=== PATIENT | female | born 1970 | race Two or more races ===

== ENCOUNTER 2019-06-02 02:13 | Inpatient (IN) | payer OTHER ==
[~2019-06-02] VITALS: Ht 158.8 cm; Wt 91.3 kg
[2019-06-02] VITALS (14 sets, daily range): BP systolic 144–195; BP diastolic 78–124
--- NOTE | 2019-06-02 02:26 | NUR ---
PG CODE CARDIAC @224 PG CARDS @[phone]
[2019-06-02] MEDS: NITROGLYCERIN 0.4 MG BOTTLE (25 TABS) SL PRN ×2 (02:30→02:40)
[2019-06-02] MEDS ORDERED: ASPIRIN 325 MG TABLET PO STA (02:31)
[2019-06-02] MEDS ORDERED: ONDANSETRON 2MG/ML, 2ML ONE (02:40)
[2019-06-02 02:46] LABS: BASOPHILS # (AUTO) 0.02 x10^3/uL (0-0.1); BASOPHILS % (AUTO) 0 % (0-1); EOSINOPHILS # (AUTO) 0.16 x10^3/uL (0-0.4); EOSINOPHILS % (AUTO) 2 % (1-7); LYMPHOCYTES # (AUTO) 2.09 x10^3/uL (1-3.4); LYMPHOCYTES % (AUTO) 22 % (22-44); MD NO; MEAN CORPUSCULAR HEMOGLOBIN 28.5 pg (27.0-34.8); MEAN CORPUSCULAR HGB CONC 32.7 g/dL (32.4-35.8); MEAN CORPUSCULAR VOLUME 86.9 fL (80-100); MEAN PLATELET VOLUME 7.1 fL (7.4-10.4); MONOCYTES # (AUTO) 0.47 x10^3/uL (0.2-0.8); MONOCYTES % (AUTO) 5 % (2-9); NEUTROPHILS # (AUTO) 6.93 x10^3/uL (1.8-6.8); NEUTROPHILS % (AUTO) 72 % (42-75); PLATELET COUNT 381 x10^3/uL (130-400); RED BLOOD COUNT 5.67 x10^6/uL (3.82-5.3); RED CELL DISTRIBUTION WIDTH 13.6 % (9.6-15.2)
[2019-06-02] MEDS ORDERED: hydrALAzine 20 MG/ML, 1ML ONE (02:48)
--- NOTE | 2019-06-02 02:48 | NUR ---
Code cardiac called at 0225. Patient c/o nausea and dizziness. Denies CP, denies LEMUS.
--- NOTE | 2019-06-02 02:51 | NUR ---
Two IVs established. SPO2 placed on right thumb. BP cuff placed on left arm. Fluids TKO. All clothes and belongings off patient and in patient belonging bag. Technology Consultant at bedside. Awaiting union laborer team.
--- NOTE | 2019-06-02 02:54 | NUR ---
Consent signed and placed on chart.
[2019-06-02 02:57] LABS: INTERNATIONAL NORMALIZED RATIO 0.99 (0.93-1.1); PROTHROMBIN TIME 10.4 Seconds (9.6-11.5)
[2019-06-02] MEDS ORDERED: FENTANYL PF 250 MCG/5ML ONE (03:00)
[2019-06-02] MEDS ORDERED: VERAPAMIL 2.5 MG/ML, 2ML ONE (03:00)
[2019-06-02] MEDS ORDERED: ONDANSETRON 2MG/ML, 2ML IVPush ONE (03:00)
[2019-06-02] MEDS ORDERED: MIDAZOLAM 1 MG/ML, 5ML ONE (03:00)
[2019-06-02] MEDS ORDERED: BIVALIRUDIN 250 MG ONE (03:00)
[2019-06-02] MEDS ORDERED: HEPARIN 1,000 UNITS/ML, 10ML ONE (03:00)
[2019-06-02] MEDS ORDERED: LIDOCAINE 1%, 20ML ONE (03:00)
[2019-06-02] MEDS ORDERED: hydrALAzine 20 MG/ML, 1ML IV ONE (03:00)
[2019-06-02 03:03] LABS: TROPONIN I < 0.015 ng/mL (0.000-0.045)
[2019-06-02] MEDS ORDERED: ASPIRIN 81 MG TABLET EC ONE (03:14)
[2019-06-02] MEDS ORDERED: FELO10TA PO (04:11)
[2019-06-02] MEDS: ONDANSETRON 2MG/ML, 2ML IVPush PRN ×2 (05:25→09:37)
[2019-06-02] MEDS ORDERED: POLYETHYLENE GLYCOL 17 GM PACKET PO PRN (05:30)
[2019-06-02] MEDS ORDERED: ONDANSETRON ODT 4 MG PO PRN (05:30)
[2019-06-02] MEDS ORDERED: BISACODYL 10 MG SUPP PR PRN (05:30)
[2019-06-02] MEDS ORDERED: ONDANSETRON 2MG/ML, 2ML IVPush PRN (05:30)
[2019-06-02] MEDS ORDERED: DOCUSATE 100 MG CAPSULE PO PRN (05:30)
[2019-06-02] MEDS ORDERED: OXYcodone IR 5MG TABLET PO PRN (05:30)
[2019-06-02] MEDS ORDERED: hydrALAzine 20 MG/ML, 1ML IVPush PRN (05:30)
[2019-06-02] MEDS ORDERED: ASPIRIN 81 MG TABLET EC PO SCH (06:00)
[2019-06-02] MEDS ORDERED: POTASSIUM CHLORIDE 40 MEQ in SODIUM CHLORIDE 0.9% 500 ML IV ONE (06:00)
[2019-06-02] MEDS: ASPIRIN 81 MG TABLET EC PO SCH (06:32)
[2019-06-02] MEDS: IRBESARTAN 150 MG TABLET PO SCH (06:32)
[2019-06-02 06:55] LABS: HEMOGLOBIN A1C 5.7 % (4.2-6.3)
[2019-06-02 07:12] LABS: FREE T4 (FREE THYROXINE) 1.06 ng/dL (0.76-1.46); TROPONIN I < 0.015 ng/mL (0.000-0.045)
[2019-06-02] MEDS: PROMETHAZINE 25 MG/ML, 1ML IM PRN ×2 (08:15→11:19)
[2019-06-02] MEDS ORDERED: hydrALAzine 20 MG/ML, 1ML IV PRN (09:00)
[2019-06-02] MEDS: AMLODIPINE 10 MG TAB PO SCH (09:33)
[2019-06-02] MEDS: SPIRONOLACTONE 25 MG TABLET PO SCH (09:33)
[2019-06-02 09:44] LABS: TROPONIN I < 0.015 ng/mL (0.000-0.045)
[2019-06-02] MEDS ORDERED: LABETALOL 5MG/ML, 20ML IVPush PRN (13:00)
[2019-06-02] MEDS: LABETALOL 5 MG/ML SYR. (IV ONLY) IVPush PRN ×2 (13:20→17:13)
[2019-06-02] MEDS: MECLIZINE 12.5 MG TABLET PO PRN (17:18)
[2019-06-03] VITALS (8 sets, daily range): BP systolic 139–183; BP diastolic 77–113
[2019-06-03 05:16] LABS: BASOPHILS # (AUTO) 0.04 x10^3/uL (0-0.1); BASOPHILS % (AUTO) 1 % (0-1); EOSINOPHILS # (AUTO) 0.02 x10^3/uL (0-0.4); EOSINOPHILS % (AUTO) 0 % (1-7); LYMPHOCYTES # (AUTO) 1.52 x10^3/uL (1-3.4); LYMPHOCYTES % (AUTO) 16 % (22-44); MD NO; MEAN CORPUSCULAR HEMOGLOBIN 28.6 pg (27.0-34.8); MEAN CORPUSCULAR HGB CONC 32.7 g/dL (32.4-35.8); MEAN CORPUSCULAR VOLUME 87.3 fL (80-100); MONOCYTES # (AUTO) 0.57 x10^3/uL (0.2-0.8); MONOCYTES % (AUTO) 6 % (2-9); NEUTROPHILS # (AUTO) 7.37 x10^3/uL (1.8-6.8); NEUTROPHILS % (AUTO) 77 % (42-75); PLATELET COUNT 363 x10^3/uL (130-400); RED BLOOD COUNT 5.33 x10^6/uL (3.82-5.3); RED CELL DISTRIBUTION WIDTH 14.4 % (9.6-15.2)
[2019-06-03 05:27] LABS: ALBUMIN 3.6 g/dL (3.4-5.0); ANION GAP 6 mmol/L (5-15); CALCIUM 9.2 mg/dL (8.5-10.1); CHLORIDE 109 mmol/L (98-107)
[2019-06-03 05:29] LABS: HEMOGLOBIN A1C 5.6 % (4.2-6.3)
[2019-06-03 05:40] LABS: ALANINE AMINOTRANSFERASE 40 U/L (12-78); ALKALINE PHOSPHATASE 103 U/L (45-117); BILIRUBIN,TOTAL 0.6 mg/dL (0.2-1.0); CHOLESTEROL, TOTAL 217 mg/dL (140-239); CREATININE 0.88 mg/dL (0.55-1.02); HDL CHOLESTEROL (DIRECT) 38 mg/dL (40-60); TOTAL PROTEIN 7.8 g/dL (6.4-8.2); TRIGLYCERIDES 144 mg/dL (50-200); VLDL CHOLESTEROL 29 mg/dL (0-25)
[2019-06-03 05:41] LABS: CHOL/HDL RATIO 5.7; HDL CHOL % 18 % (28-40); LDL CHOLESTEROL,CALCULATED 150 mg/dL (54-169); LDL/HDL RATIO 3.9 (0.5-3.0)
[2019-06-03] MEDS: ASPIRIN 81 MG TABLET EC PO SCH (05:55)
[2019-06-03] MEDS: LABETALOL 5 MG/ML SYR. (IV ONLY) IVPush PRN (06:17)
[2019-06-03] MEDS ORDERED: POTASSIUM CHLORIDE 40 MEQ in SODIUM CHLORIDE 0.9% 500 ML IV ONE (06:30)
[2019-06-03] MEDS: POTASSIUM CHLORIDE 20 MEQ TAB.ER.PRT PO SCH ×2 (09:12→17:52)
[2019-06-03] MEDS: IRBESARTAN 150 MG TABLET PO SCH (09:13)
[2019-06-03] MEDS: SPIRONOLACTONE 25 MG TABLET PO SCH (09:14)
[2019-06-03] MEDS: AMLODIPINE 10 MG TAB PO SCH (09:14)
[2019-06-03] MEDS: ONDANSETRON 2MG/ML, 2ML IVPush PRN ×2 (09:15→17:55)
[2019-06-03] MEDS ORDERED: IRBESARTAN 150 MG TABLET PO ONE (10:30)
[2019-06-03] MEDS: MECLIZINE 12.5 MG TABLET PO PRN (20:55)
[2019-06-03] MEDS ORDERED: LABETALOL 5MG/ML, 20ML IVPush PRN (21:32)
[2019-06-04 01:07] VITALS: BP 145/81
[2019-06-04 05:02] LABS: BASOPHILS # (AUTO) 0.05 x10^3/uL (0-0.1); BASOPHILS % (AUTO) 1 % (0-1); EOSINOPHILS % (AUTO) 1 % (1-7); LYMPHOCYTES # (AUTO) 1.85 x10^3/uL (1-3.4); LYMPHOCYTES % (AUTO) 28 % (22-44); MD NO; MEAN CORPUSCULAR HEMOGLOBIN 28.7 pg (27.0-34.8); MEAN CORPUSCULAR HGB CONC 32.6 g/dL (32.4-35.8); MEAN CORPUSCULAR VOLUME 88.2 fL (80-100); MEAN PLATELET VOLUME 7.1 fL (7.4-10.4); MONOCYTES % (AUTO) 6 % (2-9); NEUTROPHILS # (AUTO) 4.27 x10^3/uL (1.8-6.8); NEUTROPHILS % (AUTO) 64 % (42-75); PLATELET COUNT 325 x10^3/uL (130-400); RED CELL DISTRIBUTION WIDTH 14.1 % (9.6-15.2)
[2019-06-04 05:06] LABS: ANION GAP 6 mmol/L (5-15); CALCIUM 9.2 mg/dL (8.5-10.1); CHLORIDE 113 mmol/L (98-107); CREATININE 0.85 mg/dL (0.55-1.02)
[2019-06-04 05:30] VITALS: BP 169/105
[2019-06-04] MEDS: MECLIZINE 12.5 MG TABLET PO PRN ×2 (05:32→17:53)
[2019-06-04] MEDS: ASPIRIN 81 MG TABLET EC PO SCH (05:32)
[2019-06-04 07:27] VITALS: BP 159/81
[2019-06-04] MEDS: IRBESARTAN 300 MG TABLET PO SCH (08:57)
[2019-06-04] MEDS: POTASSIUM CHLORIDE 20 MEQ TAB.ER.PRT PO SCH ×2 (08:58→17:53)
[2019-06-04] MEDS: AMLODIPINE 10 MG TAB PO SCH (08:58)
[2019-06-04] MEDS: SPIRONOLACTONE 25 MG TABLET PO SCH (08:58)
[2019-06-04] MEDS: CARVEDILOL 6.25 MG TABLET PO SCH ×2 (11:39→17:52)
[2019-06-04 14:03] VITALS: BP 152/85
[2019-06-04 18:57] VITALS: BP 144/86
[2019-06-04] MEDS ORDERED: ATORVASTATIN 40 MG TABLET PO SCH (21:00)
[2019-06-05 01:19] VITALS: BP 135/87
[2019-06-05] MEDS: MECLIZINE 12.5 MG TABLET PO PRN ×2 (02:20→11:07)
[2019-06-05 05:34] VITALS: BP 160/96
[2019-06-05] MEDS: ASPIRIN 81 MG TABLET EC PO SCH (05:35)
[2019-06-05] MEDS: CARVEDILOL 6.25 MG TABLET PO SCH (05:35)
[2019-06-05 05:53] LABS: ANION GAP 8 mmol/L (5-15); CALCIUM 9.3 mg/dL (8.5-10.1); CHLORIDE 110 mmol/L (98-107); CREATININE 0.81 mg/dL (0.55-1.02)
[2019-06-05 06:35] VITALS: BP 134/80
[2019-06-05] MEDS ORDERED: SPIRONOLACTONE 25 MG TABLET PO SCH (09:00)
[2019-06-05] MEDS: AMLODIPINE 10 MG TAB PO SCH (09:10)
[2019-06-05] MEDS: IRBESARTAN 300 MG TABLET PO SCH (09:10)
[2019-06-05] MEDS ORDERED: HYDR-3342 PO (09:24)
[2019-06-05] MEDS ORDERED: SPIR25TA PO (09:24)
[2019-06-05] MEDS ORDERED: ASPI81TA45 PO (09:24)
[2019-06-05] MEDS ORDERED: IRBE300T40 PO (09:24)
[2019-06-05] MEDS ORDERED: MECL12.52 PO (09:24)
[2019-06-05] MEDS ORDERED: CARV6.2512 PO (09:24)
[2019-06-05] MEDS ORDERED: ATOR40TA78 PO (09:24)
[2019-06-05] MEDS ORDERED: AMLO10TA8 PO (09:24)
== END 2019-06-05 12:10 | disposition home or self-care (01) | DRG 287 ==
LOC: ED 02:55 → 5SO 05:01 → OBSVTOIN 05:01 → DCLOUNGE 06-05 12:00
PROVIDERS: ADMIT Internal Medicine Interventional Cardiology; ATTEND Family Medicine
PROC: 4A023N7 Measurement of Cardiac Sampling and Pressure, Left Heart, Percutaneous Approach (ICD-10-PCS; principal; 2019-06-02)
PROC: B211YZZ Fluoroscopy of Multiple Coronary Arteries using Other Contrast (ICD-10-PCS; 2019-06-02)
PROC: B215YZZ Fluoroscopy of Left Heart using Other Contrast (ICD-10-PCS; 2019-06-02)
DX: I16.1 Hypertensive emergency (principal); E66.9 Obesity, unspecified; Z68.36 Body mass index [BMI] 36.0-36.9, adult; E78.5 Hyperlipidemia, unspecified; E87.6 Hypokalemia; G47.30 Sleep apnea, unspecified; I10 Essential (primary) hypertension; I25.10 Atherosclerotic heart disease of native coronary artery without angina pectoris; I70.0 Atherosclerosis of aorta; Z80.1 Family history of malignant neoplasm of trachea, bronchus and lung; Z82.49 Family history of ischemic heart disease and other diseases of the circulatory system; Z87.891 Personal history of nicotine dependence; Z91.14 Patient's other noncompliance with medication regimen
CPT/HCPCS: 36415; 70450; 70551; 71045; 80047; 80048; 80053; 80061; 83036; 83735; 84439; 84443; 84484; 85025; 85610; 85730; 93005; 93306; 93458; 99156; C1769; C1887; C1894; J0360; J1644; J2250; J2405; J2550; J3010; J3480; J3490; J7040; Q9967; G0378; J0583

== ENCOUNTER 2019-09-21 07:32 | Outpatient (CLI) | payer OTHER ==
[~2019-09-21 07:32] MED LIST: AMLO10TA8 PO; ASPI81TA45 PO; ATOR40TA78 PO; CARV6.2512 PO; FELO10TA4 PO; HYDR-3342 PO; IRBE300T40 PO; MECL12.581 PO; SPIR25TA PO
[2019-09-21 07:51] LABS: BASOPHILS # (AUTO) 0.02 x10^3/uL (0-0.1); BASOPHILS % (AUTO) 0 % (0-1); EOSINOPHILS # (AUTO) 0.13 x10^3/uL (0-0.4); EOSINOPHILS % (AUTO) 2 % (1-7); LYMPHOCYTES # (AUTO) 1.29 x10^3/uL (1-3.4); LYMPHOCYTES % (AUTO) 19 % (22-44); MD NO; MEAN CORPUSCULAR HEMOGLOBIN 29.4 pg (27.0-34.8); MEAN CORPUSCULAR HGB CONC 33.4 g/dL (32.4-35.8); MEAN CORPUSCULAR VOLUME 88.1 fL (80-100); MEAN PLATELET VOLUME 6.4 fL (7.4-10.4); MONOCYTES # (AUTO) 0.44 x10^3/uL (0.2-0.8); MONOCYTES % (AUTO) 7 % (2-9); NEUTROPHILS # (AUTO) 4.89 x10^3/uL (1.8-6.8); NEUTROPHILS % (AUTO) 72 % (42-75); PLATELET COUNT 350 x10^3/uL (130-400); RED CELL DISTRIBUTION WIDTH 14.7 % (9.6-15.2)
[2019-09-21 08:00] LABS: ALBUMIN 3.9 g/dL (3.4-5.0); ANION GAP 7 mmol/L (5-15); CALCIUM 9.2 mg/dL (8.5-10.1); CHLORIDE 110 mmol/L (98-107)
[2019-09-21 08:04] LABS: ALANINE AMINOTRANSFERASE 38 U/L (12-78); ALKALINE PHOSPHATASE 117 U/L (45-117); BILIRUBIN,TOTAL 0.5 mg/dL (0.2-1.0); CHOL/HDL RATIO 3.1; CHOLESTEROL, TOTAL 154 mg/dL (140-239); CREATININE 0.81 mg/dL (0.55-1.02); HDL CHOL % 32 % (28-40); HDL CHOLESTEROL (DIRECT) 49 mg/dL (40-60); LDL CHOLESTEROL,CALCULATED 87 mg/dL (54-169); LDL/HDL RATIO 1.8 (0.5-3.0); TOTAL PROTEIN 7.7 g/dL (6.4-8.2); TRIGLYCERIDES 90 mg/dL (50-200); VLDL CHOLESTEROL 18 mg/dL (0-25)
== END 2019-09-21 23:59 | disposition home or self-care (01) ==
LOC: LAB 07:32
PROVIDERS: ATTEND Nurse Practitioner Family
DX: E78.00 Pure hypercholesterolemia, unspecified (principal); I10 Essential (primary) hypertension
CPT/HCPCS: 36415; 80053; 80061; 85025